=== PATIENT | male | born 1975 | race Caucasian/White ===

== ENCOUNTER 2016-08-04 16:21 | Emergency (ER) | payer MEDICAID ==
[~2016-08-04] VITALS: Ht 182.9 cm; Wt 108.9 kg
[2016-08-04 16:27] VITALS: BP 143/106; PULSE 76; RESP 20; TEMP 98.1; O2SAT 100
--- NOTE | 2016-08-04 16:35 | NUR ---
Pt assessed per Dr. Pettit in triage room. Pt here for medication refill and lab draw. Pt has Rx for Losartan 50 mg q day and lab requisition for [facility]. Pt states that he only has [employer] emergency and that insurance will only cover his medications and procedures done in the ER. Pt states that [employer] will only pay for Rx provided by an ER MD. Pt educated that follow up and refills need to be addressed by PCP. Pt also instructed that his Rx can be filled at any Pharmacy and instructed to go to [facility] for blood draw. Pt provided resources that can help him with costs of Rx. Pt verbalizes understanding.
[2016-08-04 16:50] VITALS: BP 140/99; PULSE 82; RESP 20; TEMP 98.1; O2SAT 100
--- NOTE | 2016-08-04 16:50 | NUR ---
Patient given written and verbal discharge instructions and verbalizes understanding. ER MD discussed with patient the results and treatment provided. Patient in stable condition. ID arm band removed. Patient educated on pain management and to follow up with PMD. Pain Scale 0/10. Opportunity for questions provided and answered.
== END 2016-08-04 16:50 | disposition home or self-care (01) ==
LOC: SED 16:21
DX: Z76.0 Encounter for issue of repeat prescription (principal); I10 Essential (primary) hypertension
CPT/HCPCS: 99283

== ENCOUNTER 2020-02-17 16:48 | Emergency (ER) | payer MEDICAID ==
[~2020-02-17] VITALS: Ht 185.4 cm; Wt 90.7 kg
[2020-02-17 16:54] VITALS: BP_SYST 137
[2020-02-17] MEDS ORDERED: IBUPROFEN 400 MG TABLET PO ONE (17:15)
[2020-02-17 17:53] VITALS: BP_SYST 137
== END 2020-02-17 17:50 | disposition home or self-care (01) ==
LOC: SED 16:48
DX: M25.562 Pain in left knee (principal); M25.561 Pain in right knee; I10 Essential (primary) hypertension; F17.210 Nicotine dependence, cigarettes, uncomplicated
CPT/HCPCS: 99283